=== PATIENT | male | born 1990 | race Caucasian/White ===

== ENCOUNTER 2018-04-09 18:16 | Emergency (ER) | END 2018-04-09 20:39 | disposition home or self-care (01) ==

== ENCOUNTER 2019-01-02 19:01 | Emergency (ER) | payer OTHER ==
[~2019-01-02] VITALS: Ht 162.6 cm; Wt 88.9 kg
[~2019-01-02 19:01] MED LIST: AMOX500C2 PO; AZIT250T PO; FEXO180T61 PO; FLUT9.9S NASAL
[2019-01-02 19:04] VITALS: BP 131/80; PULSE 112; RESP 19; Ht 162.6 cm; Wt 88.9 kg
[2019-01-02] MEDS ORDERED: ACETAMINOPHEN 325 MG TAB PO STA (22:02)
[2019-01-02] MEDS ORDERED: LIDOCAINE 1% (MDV) 20 ML INJ SC ONE (22:30)
[2019-01-02] MEDS ORDERED: DIPHTH/TET/ACEL PERTUSS (ADULT) 0.5 ML VIAL IM* ONE (22:30)
[2019-01-02] MEDS ORDERED: IBUP-1542 PO (23:14)
--- NOTE | 2019-01-02 23:17 | ERD ---
ER Documentation Chief Complaint Chief Complaint LEFT ARM LAC; [place]; REFFERED BY [facility] [place]; APPROX 1600 HPI 28-year-old male presents after falling backward into plantar today. He sustained a laceration to his left elbow. He has no restricted range of motion weakness. Tetanus is not up-to-date. ROS All systems reviewed and are negative except as per history of present illness. Medications Home Meds Active Scripts Ibuprofen* (Motrin*) 600 Mg Tab, 600 MG PO Q6, #15 TAB Prov:AARON RIVERA MD 01/02/19 Fluticasone Propionate (Flonase Allergy Relief) 9.9 Ml [place].susp, 1 SPRAY NASAL BID, #1 BOTTLE TO EACH NOSTRIL Prov:ALDAIR WALDEN 04/09/18 Fexofenadine Hcl* (Graciela*) 180 Mg Tablet, 180 MG PO DAILY, #30 TAB Prov:ALDAIR WALDEN 04/09/18 Azithromycin* (Zithromax*) 250 Mg Tablet, 250 MG PO .ZPACK DIRECTED, #6 TAB TAKE 500 MG (2 TABS) THE FIRST DAY THEN 250 MG (1 TAB) DAYS 2-5 Prov:ALDAIR WALDEN 04/09/18 Amoxicillin* (Amoxicillin*) 500 Mg Cap, 500 MG PO BID for 5 Days, CAP Prov:WINALDAIR LORENZO 04/09/18 Allergies Allergies: Coded Allergies: No Known Allergy (Unverified , 04/09/18) PMhx/Soc Medical and Surgical Hx: pt denies Medical Hx, pt denies Surgical Hx Hx Alcohol Use: No Hx Substance Use: No Hx Tobacco Use: No Smoking Status: Never smoker FmHx Family History: No diabetes, No coronary disease, No other Physical Exam Vitals Vital Signs Date Temp Pulse Resp B/P (MAP) Pulse Ox O2 O2 Flow FiO2 Time Delivery Rate 01/02/19 98.4 112 19 131/80 97 19:04 (97) Physical Exam Const: No acute distress Head: Atraumatic Eyes: Normal Conjunctiva ENT: Normal External Ears, Nose and Mouth. Neck: Full range of motion. No meningismus. Resp: Clear to auscultation bilaterally Cardio: Regular rate and rhythm, no murmurs Abd: Soft, non tender, non distended. Normal bowel sounds Skin: No petechiae or rashes Back: No midline or flank tenderness Ext: No cyanosis, or edema. Multiple small abrasions with one laceration just proximal to the left olecranon. Is approximately 2.6 cm. No active bleeding, erythema. No deficits. Neur: Awake and alert Psych: Normal Mood and Affect Results 24 hrs Current Medications Medications Dose Sig/Darryn Start Time Status Last (Trade) Ordered Route PRN Stop Time Admin Dose Reason Admin Lidocaine 20 ml ONCE ONCE 01/02/19 DC (Xylocaine SC 22:30 1% (Mdv) 20 01/02/19 22:31 ml) Diphtheria/ 0.5 ml ONCE ONCE 01/02/19 DC 01/02/19 Tetanus/Acell IM* 22:30 22:22 Pertussis 01/02/19 22:31 (Adacel) 650 mg ONCE STAT 01/02/19 DC 01/02/19 Acetaminophen PO 22:02 22:21 (Tylenol 01/02/19 22:04 Tab) Procedures/MDM X-ray left Elbow 3V Interpreted by me: Fat Pads: Normal Bones: No fracture Joints: No dislocation Foreign body: None. Impression-normal left elbow x-ray without appreciated foreign body. Procedure note-left elbow was irrigated copiously with normal saline. 3 cc lidocaine was used for local nutrition. Four 4-0 nylon sutures were used to reapproximate the wound. Patient tolerated procedure well and the wound was dressed. Patient has no signs or symptoms of foreign body, infection, deficits, ischemia, fracture, additional complications. We discharged home with recommendations for 2-day wound check in 10 days suture removal. He should return sooner for new or worsening symptoms. Departure Diagnosis: Primary Impression: Laceration Condition: Stable Patient Instructions: Laceration, All Additional Instructions: 2 days wound check in 10 days suture removal. Recheck sooner for fevers, redness, new or worsening symptoms. AARON RIVERA MD Jan 02, 2019 23:16
== END 2019-01-02 23:30 | disposition home or self-care (01) ==
LOC: FTE 19:01
DX: S51.012A Laceration without foreign body of left elbow, initial encounter (principal); W25.XXXA Contact with sharp glass, initial encounter; Y92.9 Unspecified place or not applicable; Z23 Encounter for immunization
CPT/HCPCS: 12002; 73080; 90471; 90715; Z7502; Z7610